=== PATIENT | male | born 1945 | race Caucasian/White ===

== ENCOUNTER 2020-06-18 09:56 | Outpatient (CLI) | payer OTHER, SELFPAY ==
--- NOTE | ~2020-06-18 | XR_ITS ---
XR knee RT 3V 06/18/2020 10:13 Indication: Right knee pain Procedure: 3 views right knee Comparison: No prior studies for comparison. Findings: Mild-moderate osteoarthritis of the right knee, most advanced in the patellofemoral compart ment. Small joint effusion. There is chondrocalcinosis. There is extensive vascular calcification. No acute fracture or traumatic malalignment. Impression: 1: No acute fracture. 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 Reviewed, dictated and finalized at location A. Impression: 1: No acute fracture. 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
== END 2020-06-18 09:57 | disposition home or self-care (01) ==
PROVIDERS: PCP Family Medicine; Visit Provider Family Medicine
DX: M25.561 Pain in right knee (principal); M17.11 Unilateral primary osteoarthritis, right knee; M11.261 Other chondrocalcinosis, right knee
CPT/HCPCS: 73562

== ENCOUNTER 2022-10-10 15:07 | Outpatient (CLI) | payer OTHER, SELFPAY ==
--- NOTE | ~2022-10-10 | DEXA_ITS ---
Bone Density Report Name: DANNI LUCERO Age: 77 Sex: Male Ethnicity: White Date of : 1945 Indication: screening for osteoporosis; history of glucocorticoids; prior fracture; postmenopausal Referring Provider: KYA JACKSON Study: Bone densitometry was performed. Exam Date: October 10, 2022 Accession number: [id number] Bone Density: Region BMD T-score Z-score Classification AP Spine(L1-L4) 1.283 1.7 2.9 Normal Femoral Neck (Left) 0.918 -0.1 1.4 Normal Total Hip (Left) 1.260 1.5 2.5 Normal Femoral Neck (Right) 0.862 -0.5 1.0 Normal Total Hip (Right) 1.147 0.8 1.8 Normal Total Hip Mean 1.203 1.2 2.2 Normal World Health Organization criteria for BMD impression classify patients as: Normal (T-score at or above -1.0), Osteopenia (T-score between -1.0 and -2.5), or Osteoporosis (T-score at or below -2.5). 10-year Fracture Risk: FRAX not reported because: All T-scores for Spine Total, Hip Total, Femoral Neck at or above -1.0 Clinical Information Provided by Patient: Has had a low trauma fracture Has taken Glucocorticoids Patient maximum height was 71 Impression: The patient has normal bone mass. The patient has risk factors, including: previous fracture, history of glucocorticoid therapy. Discussion: BONE DENSITY IS ABOVE THE MINIMUM DESIRABLE LEVEL AT ALL SKELETAL SITES TESTED. This patient?s bone mineral density is above the minimum desirable level (T-score -1.0 or better) at all sites measured. The patient should follow a healthful lifestyle (good nutrition with adequate calcium and vitamin D, and appropriate weight-bearing exercise). Follow-Up: Consider repeating this study in 5 years or sooner if there is some new clinical indication. Reported by: FIDELINA on 10/10/2022 3:47:00 PM. Reviewed, dictated and finalized at location [facility]
== END 2022-10-10 15:08 | disposition home or self-care (01) ==
LOC: ANHIMG 15:09
PROVIDERS: PCP Family Medicine; Visit Provider Physician Assistant
DX: S82.899A Other fracture of unspecified lower leg, initial encounter for closed fracture (principal); X58.XXXA Exposure to other specified factors, initial encounter; Z79.52 Long term (current) use of systemic steroids
CPT/HCPCS: 77080

== ENCOUNTER 2023-05-06 08:00 | Outpatient (NON) | payer OTHER, SELFPAY | END 2023-05-06 08:01 | disposition home or self-care (01) | LOC: ANHLAB 05-08 12:20 | PROVIDERS: PCP Family Medicine; Visit Provider Nurse Practitioner | DX: C44.629 Squamous cell carcinoma of skin of left upper limb, including shoulder (principal) | CPT/HCPCS: 88305 ==

== ENCOUNTER 2023-06-03 12:07 | Outpatient (NON) | payer OTHER, SELFPAY | END 2023-06-03 12:08 | disposition home or self-care (01) | LOC: ANHLAB 06-05 12:10 | PROVIDERS: PCP Family Medicine; Visit Provider Nurse Practitioner | DX: C44.629 Squamous cell carcinoma of skin of left upper limb, including shoulder (principal) | CPT/HCPCS: 88305 ==

== ENCOUNTER 2023-08-05 10:51 | Outpatient (CLI) | payer OTHER, SELFPAY ==
--- NOTE | ~2023-08-05 | XR_ITS ---
Clinical Indication: Cough PA and lateral views of the chest: Comparison: None Findings: The lungs are clear, without evidence of focal consolidation or pleural effusion. Cardiome diastinal silhouette is within normal limits. Bones and soft tissues are unremarkable. Impression: Normal chest. Reviewed, dictated and finalized at location . Impression: Normal chest.
== END 2023-08-05 10:52 | disposition home or self-care (01) ==
PROVIDERS: PCP Family Medicine; Visit Provider Family Medicine
DX: R05.9 Cough, unspecified (principal)
CPT/HCPCS: 71046

== ENCOUNTER → 2023-10-09 11:14 | Outpatient (CLI) | payer OTHER, SELFPAY ==
--- NOTE | ~2023-10-09 | XR_ITS ---
Clinical Indication: Cough PA and lateral views of the chest: Comparison: 08/05/2023 Findings: The lungs are clear, without evidence of focal consolidation or pleural effusion. Cardiome diastinal silhouette is within normal limits. Bones and soft tissues are unremarkable. Impression: Normal chest. Reviewed, dictated and finalized at location . OGRAPHIC MACHINE OPERATOR Impression: Normal chest.
== END ==
PROVIDERS: PCP Physician Assistant; Visit Provider Physician Assistant
DX: R05.9 Cough, unspecified (principal)
CPT/HCPCS: 71046

== ENCOUNTER 2023-11-12 13:56 | Outpatient (CLI) | payer OTHER, SELFPAY ==
--- NOTE | ~2023-11-12 | CT_ITS ---
EXAMINATION:CT diagnostic chest wo con DATE: 11/12/2023 14:37 INDICATION: Chronic cough. TECHNIQUE: Computed tomography (CT) of the chest was performed without intravenous contrast. Automate d exposure control and iterative reconstruction technique were employed. The dose-length product (DLP ) was 761.07 mGy-cm. COMPARISON: Chest 2 views 10/09/2023 FINDINGS: There is mild peripheral septal thickening in the upper lobes. No bronchiectasis or honeyco mbing. 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 No pleural effusion. The heart size is normal. No pericardial effusion. There are coronary artery calcifications. There is a small sliding hiatal hernia. There are cysts in left kidne y measuring up to 6.9 cm. Calcifications in the spleen are consistent with old granulomatous disease. There are changes of anterior fusion procedure in cervical spine. There is mild thoracic spondylosis . IMPRESSION: 1. Mild chronic lung disease. 2. Small sliding hiatal hernia. Reviewed, dictated and finalized at location E. MERCHANT
== END 2023-11-12 13:57 | disposition home or self-care (01) ==
LOC: ANHIMG 13:57
PROVIDERS: PCP Family Medicine; Visit Provider Family Medicine
DX: R05.3 Chronic cough (principal); K44.9 Diaphragmatic hernia without obstruction or gangrene
CPT/HCPCS: 71250